=== PATIENT | male | born 1955 | race Caucasian/White ===

== ENCOUNTER 2025-01-17 15:12 | Emergency (ER) | payer OTHER ==
[~2025-01-17] VITALS: Ht 160 cm; Wt 60.0 kg
[2025-01-17 15:24] VITALS: TEMP 37.1; O2SAT 99
[2025-01-17] MEDS: SODIUM CHLORIDE 0.9% 500 ML IV ONE (17:13)
[2025-01-17 17:29] LABS: CLARITY URINE BLOODY (CLEAR); COLOR URINE BLOODY (YELLOW)
[2025-01-17 17:30] LABS: GLUCOSE URINE TRACE (NEGATIVE); KETONES URINE 2+ (NEGATIVE); OCCULT BLOOD URINE 3+ (NEGATIVE); PH URINE 7.0 (4.5-8.0); PROTEIN URINE 3+ (NEGATIVE); SPECIFIC GRAVITY URINE 1.010 (1.005-1.030)
[2025-01-17 17:31] LABS: LEUKOCYTE ESTERASE URINE 3+ (NEGATIVE); NITRITE URINE POSITIVE (NEGATIVE); UROBILINOGEN URINE >8.0 E.U./dL (0.2-1.0)
[2025-01-17 17:34] LABS: BACTERIA URINE TRACE; RBC URINE TNTC /hpf (0-2); SQUAMOUS EPITHELIAL CELL URINE RARE /lpf (RARE/1+)
[2025-01-17 18:06] LABS: BASOPHILS % 0.3 % (0.0-2.0); EOSINOPHILS % 0.4 % (0.0-5.0); HEMATOCRIT. 39.1 % (42.0-52.0); HEMOGLOBIN. 13.0 g/dL (14.0-18.0); LYMPHOCYTES % 10.3 % (20.0-50.0); MEAN PLATELET VOLUME 6.9 fl (7.4-10.4); MONOCYTES % 8.1 % (2.0-8.0); NEUTROPHILS % 80.9 % (40.0-76.0); PLATELET 245 x1000/uL (130-400); RED BLOOD CELL COUNT 3.92 mill/uL (4.7-6.1); RED CELL DISTRIBUTION WIDTH 12.8 % (11.6-14.6)
[2025-01-17 18:27] LABS: CREATININE 1.0 mg/dL (0.6-1.3); UREA NITROGEN BLOOD 10 mg/dL (9-23)
[2025-01-17 19:23] VITALS: BP 134/68; PULSE 71; RESP 12; O2SAT 98
[2025-01-17] MEDS: ACETAMINOPHEN 325MG TABLET PO ONE (19:23)
== END 2025-01-17 19:25 | disposition home or self-care (01) ==
LOC: ER 15:12
DX: R31.9 Hematuria, unspecified (principal); N39.0 Urinary tract infection, site not specified; N40.0 Benign prostatic hyperplasia without lower urinary tract symptoms
CPT/HCPCS: 99283; 96360; 80048; 81003; 85025; 36415; J7040